=== PATIENT | male | born 1975 | race Caucasian/White ===

== ENCOUNTER 2016-10-23 21:36 | Emergency (ER) | payer MEDICARE ==
[~2016-10-23] VITALS: Ht 177.8 cm; Wt 86.4 kg
[2016-10-23 21:38] VITALS: TEMP 98.4
[2016-10-23] MEDS ORDERED: ZYPREXA10 MG PO (21:42)
[2016-10-23 22:22] LABS: BASO # 0.1 (0.0-0.2); BASO % 0.6 % (0.0-2.0); EOS # 0.3 (0.0-0.7); EOS % 3.2 % (0-4.0); GRAN # 4.3 (1.4-6.5); GRAN % 46.4 % (42.2-75.2); HEMATOCRIT 47.2 % (42.0-52.0); HEMOGLOBIN 16.4 g/dl (13.5-18.0); LYMPH # 3.7 (1.2-3.4); LYMPH % 39.3 % (20.0-51.0); MEAN CELL VOLUME 88 fl (80.0-100.0); MEAN CORPUSCULAR HEMOGLOBIN 31 pg (27.0-31.0); MEAN CORPUSCULAR HGB CONC 35 g/dl (33.0-37.0); MEAN PLATELET VOLUME 10.2 fl (7.4-10.4); MONO # 0.7 (0.1-0.6); MONO % 7.9 % (1.7-9.3); PLATELET COUNT 378 K/mm3 (130-400); RED BLOOD COUNT 5.35 M/mm3 (4.20-5.60); REDCELL DISTRIBUTION WIDTH-CV 11.6 % (11.5-14.5); WHITE BLOOD COUNT 9.3 K/mm3 (4.8-10.8)
[2016-10-23 22:34] LABS: ANION GAP 12 mmol/L (7-16); BLOOD UREA NITROGEN 13 mg/dL (9-20); CARBON DIOXIDE 29 mmol/L (22-30); CHLORIDE 99 mmol/L (98-107); CREATININE, serum 0.95 mg/dL (0.66-1.25); GLUCOSE 106 mg/dL (74-106); POTASSIUM 4.5 mmol/L (3.4-5.0); SODIUM 141 mmol/L (137-145)
[2016-10-23 22:35] LABS: ACETAMINOPHEN < 10 ug/mL (10-30); SALICYLATE < 1.0 mg/dL
[2016-10-23 23:00] LABS: AMPHETAMINE URINE NEGATIVE; BARBITURATES URINE NEGATIVE; BENZODIAZEPINES URINE NEGATIVE; BUPRENORPHINE URINE NEGATIVE; METHADONE URINE NEGATIVE; OPIATES URINE NEGATIVE; OXYCODONE URINE NEGATIVE; PHENCYCLIDINE URINE NEGATIVE; PROPOXYPHENE URINE NEGATIVE; THC CANNABINOIDS URINE NEGATIVE
[2016-10-24 02:39] VITALS: BP 104/65
[2016-10-24 03:58] VITALS: PULSE 72
== END 2016-10-24 04:02 ==
LOC: COL.ER 21:36
PROVIDERS: Nurse Practitioner
DX: F20.9 Schizophrenia, unspecified (principal); R45.851 Suicidal ideations

== ENCOUNTER 2017-07-09 15:51 | Emergency (ER) | payer MEDICARE ==
[~2017-07-09] VITALS: Ht 177.8 cm; Wt 90.9 kg
[~2017-07-09 15:51] MED LIST: ZYPREXA10 MG PO
[2017-07-09 15:55] VITALS: TEMP 98.2
[2017-07-09 16:37] LABS: BASO % 0.5 % (0.0-2.0); EOS # 0.3 (0.0-0.7); EOS % 3.3 % (0-4.0); GRAN # 5.4 (1.4-6.5); GRAN % 66.1 % (42.2-75.2); HEMATOCRIT 47.6 % (42.0-52.0); HEMOGLOBIN 16.3 g/dl (13.5-18.0); LYMPH # 1.8 (1.2-3.4); LYMPH % 22.3 % (20.0-51.0); MEAN CELL VOLUME 90 fl (80.0-100.0); MEAN CORPUSCULAR HEMOGLOBIN 31 pg (27.0-31.0); MEAN CORPUSCULAR HGB CONC 34 g/dl (33.0-37.0); MEAN PLATELET VOLUME 9.6 fl (7.4-10.4); MONO # 0.6 (0.1-0.6); MONO % 7.3 % (1.7-9.3); PLATELET COUNT 339 K/mm3 (130-400); RED BLOOD COUNT 5.27 M/mm3 (4.20-5.60); WHITE BLOOD COUNT 8.1 K/mm3 (4.8-10.8)
[2017-07-09 16:47] LABS: AMPHETAMINE URINE NEGATIVE; BARBITURATES URINE NEGATIVE; BENZODIAZEPINES URINE NEGATIVE; BUPRENORPHINE URINE NEGATIVE; METHADONE URINE NEGATIVE; OPIATES URINE NEGATIVE; OXYCODONE URINE NEGATIVE; PHENCYCLIDINE URINE NEGATIVE; PROPOXYPHENE URINE NEGATIVE; THC CANNABINOIDS URINE NEGATIVE; TRICYCLIC ANTIDEPRESS URINE NEGATIVE
[2017-07-09 17:01] LABS: ADJUSTED CALCIUM 9.1 mg/dL (8.4-10.2); ALANINE AMINOTRANSFERASE 55 U/L (21-72); ALBUMIN 4.6 gm/dL (3.5-5.0); ALKALINE PHOSPHATASE 77 U/L (50-136); ANION GAP 12 mmol/L (7-16); BILIRUBIN,TOTAL 0.5 mg/dL (0.0-1.0); BLOOD UREA NITROGEN 14 mg/dL (9-20); CALCIUM 9.6 mg/dL (8.4-10.2); CARBON DIOXIDE 27 mmol/L (22-30); CHLORIDE 101 mmol/L (98-107); CREATININE, serum 0.91 mg/dL (0.66-1.25); GLUCOSE 96 mg/dL (74-106); POTASSIUM 3.7 mmol/L (3.4-5.0); SODIUM 141 mmol/L (137-145); TOTAL PROTEIN 7.7 gm/dL (6.4-8.2)
[2017-07-09 17:05] LABS: ACETAMINOPHEN < 10 ug/mL (10-30); ALCOHOL(ethanol),MEDICAL < 10 mg/dL; SALICYLATE < 1.0 mg/dL
[2017-07-09 21:00] VITALS: BP 128/86; PULSE 98
== END 2017-07-09 21:39 ==
LOC: COL.ER 15:51
PROVIDERS: Physician Assistant
DX: F32.9 Major depressive disorder, single episode, unspecified (principal); F20.9 Schizophrenia, unspecified

== ENCOUNTER → 2017-08-20 | Outpatient (CLI) | payer MEDICARE ==
[2017-08-20 11:14] LABS: AMPHETAMINE URINE NEGATIVE; BARBITURATES URINE NEGATIVE; BENZODIAZEPINES URINE NEGATIVE; BUPRENORPHINE URINE NEGATIVE; METHADONE URINE NEGATIVE; OPIATES URINE NEGATIVE; OXYCODONE URINE NEGATIVE; PHENCYCLIDINE URINE NEGATIVE; PROPOXYPHENE URINE NEGATIVE; THC CANNABINOIDS URINE NEGATIVE; TRICYCLIC ANTIDEPRESS URINE NEGATIVE
== END ==
LOC: COL.LAB 10:32
DX: Z79.899 Other long term (current) drug therapy (principal); Z13.89 Encounter for screening for other disorder